=== PATIENT | female | born 1985 | race Caucasian/White ===

== ENCOUNTER 2020-10-01 04:23 | Emergency (ER) | payer OTHER ==
--- NOTE | 2020-10-01 05:00 | EDM.PDOC ---
ED HPI GENERAL MEDICAL PROBLEM - General Chief Complaint: Genitourinary Problem Stated Complaint: SHARP PAINS IN STOMACH AND BACK LEFT SIDE CANT PEE Time Seen by Provider: 10/01/20 04:59 - History of Present Illness INITIAL COMMENTS - FREE TEXT/NARRATIVE: 35-year-old female presents the emergency room with difficulty voiding and flank pain. Patient had fairly sudden onset flank pain that works down the left side of her abdomen. However, for the last several days the patient has had urinary frequency and discomfort especially towards the end of voiding. She has not had any fevers or chills. She also has not had any nausea or vomiting. Patient denies any history of kidney stones. And she does not believe that she is . Left Abdomen Pain Score (Numeric/FACES): 8 - Related Data Allergies Allergy/AdvReac Type Severity Reaction Status Date / Time azithromycin Allergy Hives Verified 10/01/20 04:39 meperidine [From Demerol] Allergy Hives Verified 10/01/20 04:38 Penicillins Allergy Hives Verified 10/01/20 04:38 Home Meds: Home Meds Cefdinir [Omnicef] 300 mg PO BID #12 cap 10/01/20 [Rx] Ondansetron [Zofran ODT] 4 mg SL DAILY PRN 10/01/20 [History] Rizatriptan Benzoate [Rizatriptan] 10 mg PO DAILY PRN 10/01/20 [History] Past Medical History Neurological History: Reports: Migraines - Past Surgical History HEENT Surgical History: Reports: Oral Surgery Social & Family History - Tobacco Use Tobacco Use Status *Q: Never Tobacco User - Caffeine Use Caffeine Use: Reports: None - Recreational Drug Use Recreational Drug Use: No ED ROS GENERAL - Review of Systems Review Of Systems: See Below Constitutional: Reports: No Symptoms HEENT: Reports: No Symptoms Respiratory: Reports: No Symptoms Cardiovascular: Reports: No Symptoms GI/Abdominal: Reports: Abdominal Pain. Denies: Constipation, Diarrhea, Nausea, Vomiting : Reports: Dysuria, Flank Pain, Frequency, Urgency, Urinary Retention Skin: Reports: No Symptoms Neurological: Reports: No Symptoms ED EXAM, GENERAL - Physical Exam Exam: See Below Exam Limited By: No Limitations General Appearance: Alert, No Apparent Distress Head: Atraumatic, Normocephalic Neck: Normal Inspection, Supple, Non-Tender, Full Range of Motion. No: Lymphadenopathy (R) Respiratory/Chest: No Respiratory Distress, Lungs Clear, Normal Breath Sounds Cardiovascular: Regular Rate, Rhythm, No Edema, No Murmur GI/Abdominal: Normal Bowel Sounds, Soft, Other (Palpation of the abdomen does not make the pain any worse however she has left-sided abdominal discomfort no rigidity rebound or guarding) Back Exam: Normal Inspection. No: CVA Tenderness (L), CVA Tenderness (R) Course - Vital Signs Last Recorded V/S: Last Vital Signs Temp 36.1 C 10/01/20 04:32 Pulse 102 H 10/01/20 04:32 Resp 18 10/01/20 04:32 BP 163/92 H 10/01/20 04:32 Pulse Ox 98 10/01/20 04:32 - Orders/Labs/Meds Orders: Active Orders 24 hr Category Date Time Status Abdomen Pelvis wo Cont [CT] Stat Exams 10/01/20 05:27 Taken CULTURE URINE [MREF] Urgent Lab 10/01/20 04:46 Received cefTRIAXone [Rocephin] 2 gm Med 10/01/20 07:15 Active Sodium Chloride 0.9% [Normal Saline] 100 ml IV Q24H Medication Orders Ceftriaxone Sodium 2 gm/ (Sodium Chloride) 100 mls @ 200 mls/hr IV Q24H LUIS Last Admin: 10/01/20 07:09 Dose: 200 mls/hr Documented by: MOIRA Labs: Laboratory Tests 10/01/20 10/01/20 10/01/20 Range/Units 04:46 04:46 05:18 WBC 12.87 H (3.98-10.04) K/mm3 RBC 4.42 (3.98-5.22) M/mm3 Hgb 12.9 (11.2-15.7) gm/dl Hct 39.3 (34.1-44.9) % MCV 88.9 (79.4-94.8) fl MCH 29.2 (25.6-32.2) pg MCHC 32.8 (32.2-35.5) g/dl RDW Std Deviation 42.3 (36.4-46.3) fL Plt Count 344 (182-369) K/mm3 MPV 9.9 (9.4-12.3) fl Neut % (Auto) 74.7 H (34.0-71.1) % Lymph % (Auto) 17.4 L (19.3-51.7) % Gates % (Auto) 4.9 (4.7-12.5) % Eos % (Auto) 2.2 (0.7-5.8) Baso % (Auto) 0.5 (0.1-1.2) % Neut # (Auto) 9.62 H (1.56-6.13) K/mm3 Lymph # (Auto) 2.24 (1.18-3.74) K/mm3 Gates # (Auto) 0.63 H (0.24-0.36) K/mm3 Eos # (Auto) 0.28 (0.04-0.36) K/mm3 Baso # (Auto) 0.06 (0.01-0.08) K/mm3 Manual Slide Review Normal smear Sodium (136-145) mEq/L Potassium (3.5-5.1) mEq/L Chloride (98-107) mEq/L Carbon Dioxide (21-32) mEq/L Anion Gap (5-15) BUN (7-18) mg/dL Creatinine (0.55-1.02) mg/dL Est Cr Clr Drug Dosing mL/min Estimated GFR (MDRD) (>60) mL/min BUN/Creatinine Ratio (14-18) Glucose (70-99) mg/dL Calcium (8.5-10.1) mg/dL Total Bilirubin (0.2-1.0) mg/dL AST (15-37) U/L ALT (14-59) U/L Alkaline Phosphatase (46-116) U/L Total Protein (6.4-8.2) g/dl Albumin (3.4-5.0) g/dl Globulin gm/dL Albumin/Globulin Ratio (1-2) Urine Color Yellow (Yellow) Urine Appearance Slt cloudy H (Clear) Urine pH 6.0 (5.0-8.0) Ur Specific [place] 1.025 (1.005-1.030) Urine Protein 2+ H (Negative) Urine Glucose (UA) Negative (Negative) Urine Ketones Negative (Negative) Urine Occult Blood 2+ H (Negative) Urine Nitrite Negative (Negative) Urine Bilirubin Negative (Negative) Urine Urobilinogen 0.2 (0.2-1.0) Ur Leukocyte Esterase Trace H (Negative) Urine RBC 20-30 H (0-5) /hpf Urine WBC 5-10 H (0-5) /hpf Urine WBC Clumps Rare (NOT SEEN) /hpf Ur Squamous Epith Cells 0-5 (0-5) /hpf Urine Bacteria Few (FEW) /hpf Urine Mucus Few (FEW) /hpf Urine HCG, Qual Negative (NEGATIVE) 10/01/20 Range/Units 05:18 WBC (3.98-10.04) K/mm3 RBC (3.98-5.22) M/mm3 Hgb (11.2-15.7) gm/dl Hct (34.1-44.9) % MCV (79.4-94.8) fl MCH (25.6-32.2) pg MCHC (32.2-35.5) g/dl RDW Std Deviation (36.4-46.3) fL Plt Count (182-369) K/mm3 MPV (9.4-12.3) fl Neut % (Auto) (34.0-71.1) % Lymph % (Auto) (19.3-51.7) % Gates % (Auto) (4.7-12.5) % Eos % (Auto) (0.7-5.8) Baso % (Auto) (0.1-1.2) % Neut # (Auto) (1.56-6.13) K/mm3 Lymph # (Auto) (1.18-3.74) K/mm3 Gates # (Auto) (0.24-0.36) K/mm3 Eos # (Auto) (0.04-0.36) K/mm3 Baso # (Auto) (0.01-0.08) K/mm3 Manual Slide Review Sodium 137 (136-145) mEq/L Potassium 4.1 (3.5-5.1) mEq/L Chloride 101 (98-107) mEq/L Carbon Dioxide 25 (21-32) mEq/L Anion Gap 15.1 H (5-15) BUN 11 (7-18) mg/dL Creatinine 0.9 (0.55-1.02) mg/dL Est Cr Clr Drug Dosing 76.77 mL/min Estimated GFR (MDRD) > 60 (>60) mL/min BUN/Creatinine Ratio 12.2 L (14-18) Glucose 112 H (70-99) mg/dL Calcium 8.6 (8.5-10.1) mg/dL Total Bilirubin 0.3 (0.2-1.0) mg/dL AST 56 H (15-37) U/L ALT 33 (14-59) U/L Alkaline Phosphatase 60 (46-116) U/L Total Protein 7.6 (6.4-8.2) g/dl Albumin 3.5 (3.4-5.0) g/dl Globulin 4.1 gm/dL Albumin/Globulin Ratio 0.9 L (1-2) Urine Color (Yellow) Urine Appearance (Clear) Urine pH (5.0-8.0) Ur Specific [place] (1.005-1.030) Urine Protein (Negative) Urine Glucose (UA) (Negative) Urine Ketones (Negative) Urine Occult Blood (Negative) Urine Nitrite (Negative) Urine Bilirubin (Negative) Urine Urobilinogen (0.2-1.0) Ur Leukocyte Esterase (Negative) Urine RBC (0-5) /hpf Urine WBC (0-5) /hpf Urine WBC Clumps (NOT SEEN) /hpf Ur Squamous Epith Cells (0-5) /hpf Urine Bacteria (FEW) /hpf Urine Mucus (FEW) /hpf Urine HCG, Qual (NEGATIVE) Meds: Medications Generic Name Dose Route Start Last Admin Trade Name Ger PRN Reason Stop Dose Admin Ceftriaxone Sodium 2 gm/ 100 mls @ 200 mls/hr 10/01/20 07:15 10/01/20 07:09 Sodium Chloride IV 200 mls/hr Q24H LUIS Administration Discontinued Medications Generic Name Dose Route Start Last Admin Trade Name Ger PRN Reason Stop Dose Admin Hydrocodone Bitart/Acetaminophen 1 tab 10/01/20 07:22 10/01/20 07:34 Acetaminophen/Hydrocodone 325-5 Mg Tab PO 10/01/20 07:23 1 tab ONETIME ONE Administration Hydromorphone HCl 0.5 mg 10/01/20 05:09 10/01/20 05:25 Hydromorphone 0.5 Mg/0.5 Ml Syringe IVPUSH 10/01/20 05:10 0.5 mg ONETIME ONE Administration - Re-Assessments/Exams Free Text/Narrative Re-Assessment/Exam: 10/01/20 07:[address] a [address] done that did not show any kidney stones. The patient will be treated for a pyelonephritis she is getting 2 g of Rocephin now and will take Omnicef 300 mg twice daily for 6 days starting tomorrow Departure - Departure Time of Disposition: 08:02 Disposition: Home, Self-Care 01 Clinical Impression: Pyelonephritis - Discharge Information Referrals: Yudy Herzog PA-C [Primary Care Provider] - Forms: ED Department Discharge Additional Instructions: Return to the emergency room with any questions problems or worsening symptoms. Take the antibiotics as directed. You have received a large dose of the IV today starting tomorrow morning you will start the oral medication take 1 twice daily until all gone. This was sent electronically to [employer] by Annette You have also been given a prescription for [place], or hydrocodone take 1 or 2 every 6 hours as needed for pain. Do not drive or return to work within 12 hours of using this medication Follow-up with your regular healthcare provider on Friday or for recheck Sepsis Event Note (ED) - Evaluation Sepsis Screening Result: No Definite Risk - Focused Exam Vital Signs: Vital Signs Temp Pulse Resp BP Pulse Ox 10/01/20 04:32 36.1 C 102 H 18 163/92 H 98 - My Orders Last 24 Hours: My Active Orders 10/01/20 04:46 CULTURE URINE [MREF] Urgent 10/01/20 05:27 Abdomen Pelvis wo Cont [CT] Stat 10/01/20 07:15 cefTRIAXone [Rocephin] 2 gm Sodium Chloride 0.9% [Normal Saline] 100 ml IV Q24H - Assessment/Plan Last 24 Hours: My Active Orders 10/01/20 04:46 CULTURE URINE [MREF] Urgent 10/01/20 05:27 Abdomen Pelvis wo Cont [CT] Stat 10/01/20 07:15 cefTRIAXone [Rocephin] 2 gm Sodium Chloride 0.9% [Normal Saline] 100 ml IV Q24H
[2020-10-01] MEDS ORDERED: HYDROmorphone 0.5 MG/0.5 ML Syringe IVPUSH ONE (05:09)
[2020-10-01] MEDS ORDERED: cefTRIAXone 2 GM in Sodium Chloride 0.9% 100 ML IV SCH (07:15)
[2020-10-01] MEDS ORDERED: Acetaminophen/HYDROcodone 325-5 MG Tab PO ONE (07:22)
--- NOTE | 2020-10-01 16:56 | CT ---
CT abdomen and pelvis Technique: Multiple axial sections were obtained from above the dome of the diaphragm inferiorly through the pubic symphysis. Intravenous and oral contrast were not utilized. Comparison: No prior abdominal imaging is available. Findings: Very minimal inflammatory change is seen around the left renal pelvis. No ureteral calculi or renal calculi are seen. Left renal findings could represent an infection versus a ureteral stone that has passed in the interim from clinical exam to scanning. Residual lung bases are clear. Liver shows mild fatty infiltration. Spleen size is normal. Adrenal glands show no nodule. No abnormality is appreciated within the pancreas. Gallbladder contains no calcified gallstones. Abdominal aorta shows no aneurysm. No retroperitoneal adenopathy or mesenteric abnormalities are seen. No pelvic mass or adenopathy is seen. No free fluid or inflammatory change is appreciated. Bone window settings were reviewed which show no acute osseous abnormality. Impression: 1. Minimally prominent inflammatory change around the left renal pelvis. This could represent infection or a ureteral stone which has passed in the interim. 2. Slight fatty infiltration within the liver. 3. Nothing acute is otherwise seen. Diagnostic code #2 I agree with preliminary report from [facility], finalized on 10/01/20, 7:47 AM CDT, code 1
== END 2020-10-01 08:17 | disposition home or self-care (01) ==
LOC: JD.ED 04:23
DX: N12 Tubulo-interstitial nephritis, not specified as acute or chronic (principal); Z88.5 Allergy status to narcotic agent; Z88.1 Allergy status to other antibiotic agents; Z88.0 Allergy status to penicillin
CPT/HCPCS: 36415; 74176; 74176-26; 80053; 81001; 81025; 85025; 87086; 87186; 96365; 96375; 99283; 99284-25; A9270-GY; J0696; J1170